=== PATIENT | female | born 1965 | race Caucasian/White ===

== ENCOUNTER 2017-03-30 20:45 | Emergency (ER) | payer MEDICARE, OTHER ==
[~2017-03-30] VITALS: Ht 157.5 cm; Wt 65.8 kg
[2017-03-30 21:02] VITALS: BP 148/69
[2017-03-30] MEDS ORDERED: IBUPROFEN 800 MG TABLET. PO ONE (21:45)
--- NOTE | 2017-03-30 22:10 | PHYS DOC ---
Past Medical History Past Medical History: Bipolar Past Surgical History: Appendectomy, Cholecystectomy, Other Additional Past Surgical Histo: CARDIAC ABLATION Alcohol Use: Occasionally Drug Use: None Adult General Chief Complaint Chief Complaint: ANKLE PROBLEM HPI HPI Patient is a 52 year old female presents to the emergency department stating that she fell off of a 4 foot retaining wall last night and injured her right shoulder and her right foot. Patient states she's tried to take Tylenol or ibuprofen with no relief of pain or discomfort. She states that she has increased pain and discomfort with ambulation. She denies any numbness or tingling into the lower extremities. Review of Systems Review of Systems Constitutional: Denies fever or chills [] Eyes: Denies change in visual acuity, redness, or eye pain [] HENT: Denies nasal congestion or sore throat [] Respiratory: Denies cough or shortness of breath [] Cardiovascular: No additional information not addressed in HPI [] GI: Denies abdominal pain, nausea, vomiting, bloody stools or diarrhea [] : Denies dysuria or hematuria [] Musculoskeletal: Denies back pain. Complaint of right shoulder, and right foot pain Integument: Denies rash or skin lesions [] Neurologic: Denies headache, focal weakness or sensory changes [] Endocrine: Denies polyuria or polydipsia [] Current Medications Current Medications Current Medications Medications (Trade) Dose Ordered Sig/Eliz Start Time Stop Time Status Last Admin Dose Admin Ibuprofen (Motrin) 800 mg 1X ONCE 03/30/17 21:45 03/30/17 21:46 DC Allergies Allergies Allergies Coded Allergies Type Severity Reaction Last Updated Verified aspartame Allergy Intermediate 03/30/17 Yes lithium Allergy Intermediate 03/30/17 Yes quetiapine Allergy Intermediate 03/30/17 Yes trazodone Allergy Intermediate 03/30/17 Yes Physical Exam Physical Exam Constitutional: Well developed, well nourished, no acute distress, non-toxic appearance. [] HENT: Normocephalic, atraumatic, bilateral external ears normal, oropharynx moist, no oral exudates, nose normal. [] Eyes: PERRLA, EOMI, conjunctiva normal, no discharge. [] Neck: Normal range of motion, no tenderness, supple, no stridor. [] Cardiovascular:Heart rate regular rhythm Lungs & Thorax: No respiratory distress noted Skin: Warm, dry, no erythema, no rash. [] Back: No tenderness Extremities: Right foot tenderness noted on the dorsum part. Patient with tenderness noted on the right shoulder. Patient with decreased range of motion noted to the shoulder area. No bruising or discoloration noted. Peripheral pulses 2+ cap refill brisk less than 2 seconds. Patient with Sensation to the lower extremities. no cyanosis, no clubbing, ROM intact, no edema. [] Neurologic: Alert and oriented X 3, normal motor function, normal sensory function, no focal deficits noted. [] Psychologic: Affect normal, judgement normal, mood normal. [] Current Patient Data Vital Signs Vital Signs Date Time Temp Pulse Resp B/P (MAP) Pulse Ox O2 Delivery O2 Flow Rate FiO2 03/30/17 21:02 98.4 94 18 96 Room Air 98.4 EKG EKG [] Radiology/Procedures Radiology/Procedures [] Course & Med Decision Making Course & Med Decision Making Pertinent Labs and Imaging studies reviewed. (See chart for details) X-rays were negative for any bony abnormalities per Dr. Urban. Patient will be discharged home with recommendations for Tylenol or ibuprofen for pain and discomfort. Recommended ice packs on 20 minutes off 20 minutes several times a day. Elevation as much as possible. Patient will be placed in Ish wrap and a postop shoe to the right foot. Recommended following up with orthopedic. A shunt will be discharged home in stable condition signs and symptoms to return back to emergency department has been provided. All questions and concerns been answered at patient's bedside. [] Dragon Disclaimer Dragon Disclaimer This electronic medical record was generated, in whole or in part, using a voice recognition dictation system. Departure Departure Impression: Primary Impression: Right shoulder pain Additional Impression: Right foot pain Disposition: 01 HOME, SELF-CARE Condition: STABLE Referrals: NO PCP (PCP) BRENDA BHATT MD Patient Instructions: Foot Contusion, [id number], Shoulder Pain, [id number] Additional Instructions: All your x-rays were negative for any bony abnormalities. Tylenol or ibuprofen for pain and discomfort. Ice packs on 20 minutes off 20 minutes several times a day. Elevation as much as possible. Wear the Ish wrap for the next 7-10 days. Wear the postop shoe to help with pain and discomfort. Follow-up with orthopedic within the next week. Return back to emergency prior signs symptoms of become worse. Problem Qualifiers Primary Impression: Right shoulder pain Chronicity: acute Qualified Codes: M25.511 - Pain in right shoulder GREGOR GONZALEZ APRN Mar 30, 2017 22:10
[2017-03-30] MEDS ORDERED: IBUP800T19 PO (22:19)
--- NOTE | 2017-03-31 08:16 | RAD ---
Exam performed: Right shoulder, right ankle and foot 3 views. Clinical Indication: Pain status post fall. Date of Service:8:30 03/22/17. Comparison :None available 3 views right foot and ankle Findings: PA, oblique and lateral radiographs of the foot and ankle reveal the osseous structures to be intact and well aligned. The joint spaces are well preserved and the articular margins are smooth. Mild soft tissue swelling is noted. There is a round soft tissue calcification in the distal leg, etiology unknown Impression: 1. Soft tissue swelling. 2. No acute abnormality seen in the right foot and ankle. End impression 3 views right shoulder findings: AP radiographs of the shoulder in internal and external rotation as well as a Y-view reveal the osseous structures to be intact and well aligned. The joint space is well-preserved. The articular margins are smooth. Impression: 1. Radiographically normal shoulder.
== END 2017-03-30 22:43 | disposition home or self-care (01) ==
LOC: ER 20:45
DX: M25.571 Pain in right ankle and joints of right foot (principal); M25.511 Pain in right shoulder; F31.9 Bipolar disorder, unspecified; Z88.8 Allergy status to other drugs, medicaments and biological substances; W17.89XA Other fall from one level to another, initial encounter; Y93.89 Activity, other specified; Y99.8 Other external cause status; Y92.89 Other specified places as the place of occurrence of the external cause
CPT/HCPCS: 73030; 73610; 73630; 99284

== ENCOUNTER 2019-01-19 15:34 | Emergency (ER) | payer OTHER ==
[~2019-01-19] VITALS: Ht 160 cm; Wt 65.8 kg
[~2019-01-19 15:34] MED LIST: IBUP800T19 PO
[2019-01-19 16:20] VITALS: BP 135/57
[2019-01-19] MEDS ORDERED: methylPREDNISolone SOD SUCC PF 125 MG/2 ML VIAL. IM ONE (16:45)
[2019-01-19] MEDS ORDERED: PRED50TA PO (16:50)
--- NOTE | 2019-01-19 16:50 | PHYS DOC ---
Past Medical History Past Medical History: Bipolar Past Surgical History: Appendectomy, Cholecystectomy, Other Additional Past Surgical Histo: CARDIAC ABLATION Alcohol Use: Occasionally Drug Use: None Adult General Chief Complaint Chief Complaint: SKIN RASH/ABSCESS HPI HPI Review of Systems Review of Systems Constitutional: Denies fever or chills [] Eyes: Denies change in visual acuity, redness, or eye pain [] HENT: Denies nasal congestion or sore throat [] Respiratory: Denies cough or shortness of breath [] Cardiovascular: No additional information not addressed in HPI [] GI: Denies abdominal pain, nausea, vomiting, bloody stools or diarrhea [] : Denies dysuria or hematuria [] Musculoskeletal: Denies back pain or joint pain [] Integument: Denies rash or skin lesions [] Neurologic: Denies headache, focal weakness or sensory changes [] Endocrine: Denies polyuria or polydipsia [] All other systems were reviewed and found to be within normal limits, except as documented in this note. Current Medications Current Medications Current Medications Medications (Trade) Dose Ordered Sig/Eliz Start Time Stop Time Status Last Admin Dose Admin Methylprednisolone Sodium Succinate (SOLU-Medrol 125MG VIAL) 125 mg 1X ONCE 01/19/19 16:45 01/19/19 16:46 DC 01/19/19 16:45 125 MG Allergies Allergies Allergies Coded Allergies Type Severity Reaction Last Updated Verified aspartame Allergy Intermediate 03/30/17 Yes lithium Allergy Intermediate 03/30/17 Yes quetiapine Allergy Intermediate 03/30/17 Yes trazodone Allergy Intermediate 03/30/17 Yes Physical Exam Physical Exam Constitutional: Well developed, well nourished, no acute distress, non-toxic appearance. [] HENT: Normocephalic, atraumatic, bilateral external ears normal, oropharynx moist, no oral exudates, nose normal. [] Eyes: PERRLA, EOMI, conjunctiva normal, no discharge. [] Neck: Normal range of motion, no tenderness, supple, no stridor. [] Cardiovascular:Heart rate regular rhythm, no murmur [] Lungs & Thorax: Bilateral breath sounds clear to auscultation [] Abdomen: Bowel sounds normal, soft, no tenderness, no masses, no pulsatile masses. [] Skin: Warm, dry, no erythema, no rash. [] Back: No tenderness, no CVA tenderness. [] Extremities: No tenderness, no cyanosis, no clubbing, ROM intact, no edema. [] Neurologic: Alert and oriented X 3, normal motor function, normal sensory function, no focal deficits noted. [] Psychologic: Affect normal, judgement normal, mood normal. [] Current Patient Data Vital Signs Vital Signs Date Time Temp Pulse Resp B/P (MAP) Pulse Ox O2 Delivery O2 Flow Rate FiO2 01/19/19 16:20 98.7 101 16 135/57 (83) 98 Room Air 98.7 EKG EKG [] Radiology/Procedures Radiology/Procedures [] Course & Med Decision Making Course & Med Decision Making Pertinent Labs and Imaging studies reviewed. (See chart for details) [] Dragon Disclaimer Dragon Disclaimer This electronic medical record was generated, in whole or in part, using a voice recognition dictation system. Departure Departure Impression: Primary Impression: Contact dermatitis Disposition: HOME, SELF-CARE Condition: STABLE Referrals: NO PCP (PCP) Patient Instructions: Contact Dermatitis Additional Instructions: You can try [id number] antihistamines for the itching if not taking your prescribed Vistaril. Such as Benadryl. Plenty of fluids. Avoid scratching the rash. You can try [id number] calamine lotion or other topical ointment to rash as directed on container. Scripts Prednisone (PREDNISONE) 50 Mg Tablet 1 TAB PO DAILY, #4 TAB 0 Refills Start 01/20/19 Prov: VONDA ALMANZAR APRN 01/19/19 VONDA ALMANZAR APRN Jan 19, 2019 16:50
== END 2019-01-19 17:45 | disposition home or self-care (01) ==
LOC: ER 15:34
DX: L25.9 Unspecified contact dermatitis, unspecified cause (principal); F31.9 Bipolar disorder, unspecified; Z88.8 Allergy status to other drugs, medicaments and biological substances
CPT/HCPCS: 96372; 99283; J2930